=== PATIENT | female | born 1955 | race Asian ===

== ENCOUNTER → 2024-11-27 13:59 | Outpatient (REF) | payer OTHER, SELFPAY | LOC: HWWDC 13:59 | PROVIDERS: ATTENDING PHYSICIAN Nurse Practitioner Family | DX: M81.0 Age-related osteoporosis without current pathological fracture (principal); Z12.31 Encounter for screening mammogram for malignant neoplasm of breast | CPT/HCPCS: 77063; 77067; 77080 ==